=== PATIENT | female | born 1930 | race Caucasian/White ===

== ENCOUNTER → 2017-02-08 | Outpatient (CLI) | payer MEDICARE, BC ==
[~2017-02-08] MED LIST: ALEVE220 MG PO; AMARYL2 MG PO; AMLODIPINE BESYL5 MG PO; ASCORBIC ACID500 MG PO; ASPIRIN EC81 MG PO; BACTRIM DS1 TAB PO; CALCIUM WITH V1 EAC1 PO; CLARITIN10 MG PO; COREG12.5 MG PO; DAILY MULTIPLE1 EAC1 PO; DETROL LA EXTEND4 MG PO; ESTRACE0.5 MG PO; FISH OIL 1,0001 EAC1 PO; MGO400 MG PO; NORCO 5-325 TA1 EACH PO; OCUVITE WITH L1 EACH PO; OMEPRAZOLE40 MG PO; PAIN RELIEVER650 MG PO; PRAVACHOL40 MG PO; PRED FORTE 1%5 ML OPHTH; PRESERVISION A1 EAC1 PO; PROBIOTIC1 EAC1 PO; THERA-VITE W/ B1 TAB; ULTRAM50 MG PO; VITAMIN B-121000 MCG PO; VITAMIN B-6100 MG PO; VITAMIN D1000 UNIT PO; ZESTRIL40 MG PO
== END | disposition disaster alternative care site (69) ==
LOC: GPOC 02-03 14:00 → GRAD 11:37 → GPOC 13:00
PROC: 0G9G3ZX Drainage of Left Thyroid Gland Lobe, Percutaneous Approach, Diagnostic (ICD-10-PCS; principal; 2017-02-08)
DX: E04.2 Nontoxic multinodular goiter (principal)

== ENCOUNTER 2017-04-03 06:56 | Day surgery (SDC) | payer MEDICARE, BC ==
[~2017-04-03] VITALS: Ht 157.5 cm; Wt 113.1 kg
--- NOTE | ~2017-04-03 | OR ---
PATIENT'S NAME: SKY VILLANUEVA [facility] AGE: 86 Y [address] ROOM: [place] [address] [place] [facility] [place]: 04/03/2017 OR/Procedure Report DISCHARGE DATE: FAMILY PHYSICIAN: Martha Kovacs MD ATTENDING PHYSICIAN: Bhargav Pineda V SURGEON: Bhargav Pineda MD [employer] REPRESENTATIVE: Salvatore Emery, PGY5. DATE OF PROCEDURE: 04/03/2017 PREOPERATIVE DIAGNOSIS: Hurthle cell neoplasm, left thyroid lobe. POSTOPERATIVE DIAGNOSIS: Hurthle cell neoplasm, left thyroid lobe. OPERATIONS/PROCEDURES: Left thyroid lobectomy; isthmusectomy; tube placement, EMG monitored endotracheal tube with intraoperative nerve monitoring (1 hour). ANESTHESIA: General endotracheal anesthesia. ESTIMATED BLOOD LOSS: Minimal. COMPLICATIONS: None. FINDINGS: Frozen section pathology consistent with Hurthle cell neoplasm, no obvious malignancy. DESCRIPTION OF PROCEDURE: The patient was taken to the operating room and laid in supine position with general endotracheal anesthesia with EMG- monitored endotracheal tube. Ground electrodes were placed on the right and left shoulders respectively. Impedance interferences were noted to be within normal limits. Shoulder roll was placed. Head was placed in a sniffing position. Proposed incision line marked and infiltrated with 1% lidocaine with epinephrine solution. The neck was then prepped and draped in the usual sterile fashion using Betadine solution. Approximately 6 cm horizontal neck incision performed using a #15 blade. Subcutaneous tissues were divided using #15 blade including the platysma. Subplatysmal flap was elevated superiorly using Bovie electrocautery as well as inferiorly and secured using 2-0 silk suture. Strap muscles were divided in the midline, reflected to the left. Adventitia over the surface of the thyroid lobe was divided using Harmonic scalpel. Middle thyroid vein was divided using Harmonic scalpel. We then clamped and suture ligated using 3-0 silk suture. Dissection was then performed bluntly up to the superior pole. Superior thyroid vessels were clamped and suture ligated using 2-0 silk suture. The thyroid lobe was reflected medially. Blunt dissection was then performed down in the inferior pole. Recurrent laryngeal nerve was identified confirmed using the stimulus probe. Inferior thyroid vessel was divided using Harmonic scalpel. The PATIENT'S NAME: SKY VILLANUEVA [facility] AGE: 86 Y [address] ROOM: [address] [address] [place] [facility] [place]: 04/03/2017 OR/Procedure Report DISCHARGE DATE: FAMILY PHYSICIAN: Martha Kovacs MD ATTENDING PHYSICIAN: Bhargav Pineda V isthmus was then divided using Harmonic scalpel and reflected over the anterior wall of the trachea. Dissection was carried up to the area of the cricothyroid. Recurrent laryngeal nerve was followed under Quan ligament. Quan ligament was crossclamped and divided using #15 blade. Quan ligament was suture ligated using 3-0 silk suture. Hemostasis was noted to be adequate. The patient tolerated the procedure well. 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 Neck was irrigated with copious amounts of bacitracin solution. Hemostasis was adequate. Strap muscles were approximated using running interlocking 3-0 Vicryl suture. Platysma reapproximated with interrupted 3-0 Vicryl. Skin closure performed with 4-0 Monocryl. Steri-Strips and occlusive dressing was applied. The patient was aroused, extubated, and discharged from the operating room to the recovery room in satisfactory condition. BHARGAV PINEDA MD TVC/modl /[id number] d: 04/03/172113 t: 04/20/17 1843, OPERATIVE SUMMARY
[~2017-04-03 06:56] MED LIST changes: -NORCO 5-325 TA1 EACH PO
--- NOTE | 2017-04-03 18:05 | NUR ---
Significant Event: returned from pacu at 1400, gauze and tegaderm dressing to neck with moderate amount serosanginous drainage, patient up to bedside commode with walker when back, could walk to bathroom with 1 assist, [place] 1 tab given last at 1515, crushing large pills & putting in applesauce, able to swallow small pills, less hoarse than when returned from post-op, 360 up in water glass Follow up:
--- NOTE | 2017-04-04 00:08 | NUR ---
Significant Event: Afebrile, VSS. Dressing to anterior neck saturated (serosanguinous drainage) and changed. Drinking/voiding well. PIV saline locked. UP to bathroom with 1 assist, gait belt and walker. HS accucheck 180 with no SSI coverage needed. Circle (1 tab) given x1 at 2223 for pain. Daughter in room. Follow up:
--- NOTE | 2017-04-04 04:40 | NUR ---
Significant Event:Is on Accuchecks ACHS. Dressing to neck is dry & intact. Has ice bag to neck. Up to bedside commode with standby assist, also bathroom. Took 2 Zillah @ 0300 with relief noted. Daughter staying @ bedside. Follow up:Possibly home today.
[2017-04-04] MEDS ORDERED: NORCO 5-325 TA1 EACH PO (10:27)
--- NOTE | 2017-04-04 18:09 | NUR ---
DISCHARGE: D: ORDERS RECEIVED FOR THE PATIENT TO BE DISCHARGED TO HOME TODAY. I: DISMISSAL INSTRUCTIONS WERE PREPARED AND REVIEWED WITH THE PATIENT AND HER FAMILY VIRTUALLY. THE FOLLOWING INFORMATION WAS DISCUSSED INCLUDING [employer] TEACHING SHEETS PROVIDED: HAVING THYROID SURGERY, DISCHARGE INSTRUCTIONS FOR THYROIDECTOMY, NORCO AND PREVENTING DVT. REVIEWED FOLLOW UP APPOINTMENTS AND NEW PRESCRIPTIONS. R: THE PATIENT AND HER FAMILY BOTH VERBALIZED UNDERSTANDING OF THE DISMISSAL EDUCATION AT THE TIME OF TEACHING WITH NO FURTHER QUESTIONS. P: THE ABOVE INFORMATION WAS SHARED WITH THE PRIMARY NURSE AND THE CHARGE NURSE THAT THE PATIENT'S DISMISSAL EDUCATION WAS COMPLETED. THE PATIENT IS READY FOR DISCHARGE TO THE [facility] VIA WHEEL CHAIR BY NURSING STAFF.
== END 2017-04-04 12:16 | disposition disaster alternative care site (69) ==
LOC: GMSU 06:56 → GSDC 06:56 → GPOC 07:00 → GMSU 14:00 → GSDC 04-04 12:16
PROC: 0GTG0ZZ Resection of Left Thyroid Gland Lobe, Open Approach (ICD-10-PCS; principal; 2017-04-03)
DX: D34 Benign neoplasm of thyroid gland (principal); M19.90 Unspecified osteoarthritis, unspecified site; E11.9 Type 2 diabetes mellitus without complications; I10 Essential (primary) hypertension; E78.00 Pure hypercholesterolemia, unspecified; I25.2 Old myocardial infarction; E78.5 Hyperlipidemia, unspecified; Z98.41 Cataract extraction status, right eye; Z98.42 Cataract extraction status, left eye; Z90.49 Acquired absence of other specified parts of digestive tract; Z90.710 Acquired absence of both cervix and uterus; Z96.653 Presence of artificial knee joint, bilateral; Z98.890 Other specified postprocedural states; Z88.8 Allergy status to other drugs, medicaments and biological substances; Z79.899 Other long term (current) drug therapy; Z88.1 Allergy status to other antibiotic agents
CPT/HCPCS: J2001; J7030